=== PATIENT | female | born 1990 | race Caucasian/White ===

== ENCOUNTER 2020-08-14 20:00 | Inpatient (IN) | payer BC ==
[2020-08-14] VITALS (11 sets, daily range): BP systolic 114–156; BP diastolic 67–91; PULSE 63–82; TEMP 98.7
[~2020-08-14] VITALS: Ht 162.6 cm; Wt 70.0 kg
--- NOTE | 2020-08-14 20:10 | NUR ---
G1L0. 39-2. Ambulatory to LDR 5 with spouse. Clean gown on. EFM and TOCO explained and applied. Pt states she thinks her water broke at 1900. Report going to the bathroom and feeling a pop and then there was a softball size puddle on the ground of clear fluid. Pt reports contractions prior water breaking states intensity increased after her water broke. Pt breathing and very uncomfortable with contractions. 2024: SVE per MBert RN 3-4/80-3. bulgy bag noted on exam. Amniotest X3 negative with clear discharge noted to exam glove. Plan of care explained to pt. Assessment completed. 2039: updated on pts status. See phyiscan notification. Pt updated on new plan of care. 2104: IV started and labs obtained via IV site. LR bolus infusing without difficulties. Pt requesting an epidural. CBolivar MERCHANDISE [employer]OW ASSOCIATE notificated. 2150: Jack MERCH[employer]ISE [employer]OW ASSOCIATE at bedside for epidural. Procedure explained. Pt sitting on edge of bed. Difficulty tracing FHR due to maternal position. Pulse ox applied and tracing. 2154: Single shot administered by MERCHANDISE FLOW ASSOCIATE. 2156: Test dosse administered by MERCHANDISE FLOW ASSOCIATE. See anethesia records. 2200: Pt assisted to wedge left position. Plan of care and safety precautions explained to pt and who verbalize their understanding. 2204: FHR deceleration noted down to 90bpms. Pt wedge right with no return to baseline. SVE 8/100/0. Bulgy bag noted. 2206: FHR remains in the 90s with multiple position changes. Oxygen applied via oxymask at 10L. LR bolus infusing. 8: FHR remains in 90s-100s with position changes and oxygen applied. updated on pts status. See phyiscan notification. 2213: FHR deceleration noted down to 80bpm at lowest point. SVE 9. Pt repositioned hands/knees. 2214: requested at hospital for heart tones. See physican notification. 2218: Pt out of hands/knees and repositioned to right lateral. Pt updated on plan of care. Questions answered. 2220: Oxygen removed. 2226: at bedside and reviews FHR strip. Provider to remain at nurses station. [id number]: FHR remains 90s-110s with repositioning pt. 2236: at bedside for evaluation. Reviews FHR strip. SVE C/+2. Pt educated on pushing with contractions. 2241: Pt begins pushing with and reviewing FHR strip. 2248: Straight catherization completed by provider. Pt continues pushing with provider while reviewing FHR strip. 2333: Spontaneous delivery of viable male infant by . NC X2 noted without needing reduced prior to delivery. to mothers chest where dried and stimulated by nursery RN. Care of infant assumed by Chioma BUTLER. 233: Spontaneous delivery of intact placenta by . Pitocin started at 333mu/hr per protocol. Third degree laceration repaired by . Straight catherizarion completed. Fundal message completed. Pads changed, ice pack applied and pt repostioned in bed. Plan of care and safety precautions explained to pt and who verablize their understanding. Questions answered. Call light within reach.
[2020-08-14] MEDS ORDERED: COLACE 100100 MG/CAP PO (20:34)
[2020-08-14] MEDS ORDERED: SYNTHROID0.05 MG/TA PO (20:34)
[2020-08-14] MEDS ORDERED: PRENATAL MVI PO (20:35)
[2020-08-14] MEDS ORDERED: ZYRTEC ALLERGY10 MG PO (20:35)
[2020-08-14 22:00] LABS: BASO % 0.3 % (0.0-2.0); EOS # 0.1 (0.0-0.7); EOS % 0.7 % (0-4.0); GRAN # 8.9 (1.4-6.5); GRAN % 75.6 % (42.2-75.2); HEMATOCRIT 40.3 % (37.0-47.0); HEMOGLOBIN 13.9 g/dl (12.5-16.0); LYMPH # 1.3 (1.2-3.4); MEAN CELL VOLUME 84 fl (80.0-100.0); MEAN CORPUSCULAR HEMOGLOBIN 29 pg (27.0-31.0); MEAN CORPUSCULAR HGB CONC 35 g/dl (33.0-37.0); MONO # 1.4 (0.1-0.6); MONO % 11.4 % (1.7-9.3); PLATELET COUNT 190 K/mm3 (130-400); REDCELL DISTRIBUTION WIDTH-CV 13.9 % (11.5-14.5)
[2020-08-14 22:08] LABS: ALBUMIN 4.3 gm/dL (3.5-5.0); BILIRUBIN,TOTAL 0.7 mg/dL (0.0-1.0); CALCIUM 9.9 mg/dL (8.4-10.2); CREATININE, serum 0.69 (0.52-1.25); POTASSIUM 3.4 mmol/L (3.4-5.0); TOTAL PROTEIN 8.4 gm/dL (6.4-8.2)
[2020-08-15] VITALS (11 sets, daily range): BP systolic 101–131; BP diastolic 58–69; PULSE 63–81; TEMP 97.7–98.5
--- NOTE | 2020-08-15 03:00 | NUR ---
Pt sat up on edge of bed. Epidural catheter removed. Pt denies dizziness or lightheadedness. Pt ambulatory to bathroom one person assist. Pt unable to void. Encouarged fluids. Pericare explained and provided. Pt wheeled and oriented to room.
[2020-08-16] MEDS ORDERED: MOTRIN 800800 MG/TAB PO (04:55)
[2020-08-16 07:45] VITALS: BP 112/68; PULSE 57; TEMP 97.5
--- NOTE | 2020-08-16 07:45 | NUR ---
Ambulates around in the room. Denies any needs or discomfort at this time.
--- NOTE | 2020-08-16 16:45 | NUR ---
Discharge instructions given, verbalizes understanding.
== END 2020-08-16 17:30 | disposition home or self-care (01) | DRG 768 ==
LOC: LDRO 20:00 → LDR 21:00 → OB 08-15 08:22
PROVIDERS: ADMIT Student in an Organized Health Care Education/Training Program
PROC: 10E0XZZ Delivery of Products of Conception, External Approach (ICD-10-PCS; principal; 2020-08-14)
PROC: 0DQR0ZZ Repair Anal Sphincter, Open Approach (ICD-10-PCS; 2020-08-14)
DX: O99.284 Endocrine, nutritional and metabolic diseases complicating childbirth (principal); Z37.0 Single live birth; O70.20 Third degree perineal laceration during delivery, unspecified; Z3A.39 39 weeks gestation of pregnancy; E03.9 Hypothyroidism, unspecified; L30.9 Dermatitis, unspecified; O26.893 Other specified pregnancy related conditions, third trimester; Z67.41 Type O blood, Rh negative; O69.81X0 Labor and delivery complicated by cord around neck, without compression, not applicable or unspecified; Z86.16 Personal history of COVID-19
CPT/HCPCS: J2405; J2590; J2791; J7120

== ENCOUNTER → 2020-08-21 | Outpatient (CLI) | payer BC ==
[~2020-08-21] MED LIST: COLACE 100100 MG/CAP PO; MOTRIN 800800 MG/TAB PO; PRENATAL MVI PO; SYNTHROID0.05 MG/TA PO; ZYRTEC ALLERGY10 MG PO
--- NOTE | 2020-08-21 14:34 | NUR ---
Pt, Edna Mallory, presents for outpatient consult with 7 day old baby boy, Ignatious "Nelson" Shawnee and her spouse, Greg. Bishop contacted this LC because of nipple soreness and concerns about latching. Nelson was born on [birth year] and weighed 7#8.6oz (3420 gms). Discharge weight was 7#3.9oz (3285 gms). At his first doctor appt on 08/19/20 he weighed 7#4oz. Nelson has been supplemented at home with formula and expressed breastmilk. From data available, Nelson has received 7.5oz by bottle in the last 24 oz, of which 2 were formula. Today Nelson weighs 7#6oz (3346 gms). LC assists with improved latching, support under baby and breast. Pt states the latch is more comfortable. After nursing bilaterally Nelson had a weight gain of 0.9oz (26 gms). He is then fed 2oz formula by bottle. Pt is able to pump 1/2oz milk after feeding. Problem list for Nelson: Jaundice, high palate, lip tie Problem list for Pt: low milk supply, sore nipples, post- hypertension POC: 3-step feeding plan: Breast (max 20 min per side), supplement 1-2oz EBM or formula, pump as instructed. Consider diet, fluid, rest and herbal supplements as discussed. F/U: TuesdayAugust 22 [facility], TuesdayAugust 26 @ 1300 with this LC. Questions invited and answered.
== END ==
LOC: LAC 12:51
DX: Z39.1 Encounter for care and examination of lactating mother (principal); Z71.89 Other specified counseling

== ENCOUNTER → 2020-08-26 | Outpatient (CLI) | payer BC ==
--- NOTE | 2020-08-26 13:25 | NUR ---
Pt, Meli Mallory, presents with 12 day old baby boy, Nelson Mallory, for a follow up consult to evaluate milk volume and transfer. They are accompanied by Alisa Mallory. Nelson was born on [birth year] and weighed 7#8.6oz (3419 gms). On 08/21/20 he weighed 7#6oz (3345 gms). They have followed the 3-step feeding plan as described. Nelson has breastfed x8 in the last 24 hours, has received 14oz EBM and/or formula in the last 24 hours. Pt has pumped 8.25oz in the last 24 hours. Today Nelson weighs 7#12.7oz (3536 gms). After the left breast he had a gain of 10 gms. On the right he gained 22gms with breast compression. He is returned to the left breast with compression and has an additional gain of 22gms. He is placed back to the left breast with massage and gained 6 additional gms for a total gain of 38 gms which is a slight improvement from our previous consult where he gained 26 gms. Pt pumps about 5ml after . Ita drinks about 30ml formula by bottle. POC: Continue 3-step feeding plan, pt may consider taking a 24-48 hour pumping plan to evaluate overall production and try stimulation of milk production. F/U: By telephone with this LC, as outpatient to be determined. Questions invited and answered.
== END ==
LOC: LAC 12:51
DX: Z39.1 Encounter for care and examination of lactating mother (principal); Z71.89 Other specified counseling

== ENCOUNTER 2023-12-01 06:23 | Inpatient (IN) | payer BC ==
[2023-12-01] VITALS (26 sets, daily range): BP systolic 111–154; BP diastolic 55–89; PULSE 64–100; TEMP 98–98.6
[~2023-12-01] VITALS: Ht 165.1 cm; Wt 74.5 kg
[~2023-12-01 06:23] MED LIST changes: +CYMBALTA 60MG60 MG PO; +IBU800 M1 PO; +LR & Oxytocin 500 ML IV SCH; +LR 1,000 ML IV SCH; +TRANDATE 100MG100 MG PO
--- NOTE | 2023-12-01 06:45 | NUR ---
PT AMBULATES ONTO THE UNIT FOR SCHEDULED INDUCTION OF LABOR.PT REPORTS ACTIVE MOVEMENTS FROM BABY.PT DENIES LOF/VB.PT REPORTS FEELING IRREGULAR CONTRACTIONS THAT WRAP AROUND HER BACK.POC REVIEWED WITH PT AND SIGNIFICANT OTHER.PT AND SPOUSE VERBALIZE UNDERSTANDING.EFM AND TOCO TRACING CATEGORY 1. CONSENTS REVIEWED AND SIGNED.QUESTIONS ASKED AND ANSWERED.
[2023-12-01] MEDS ORDERED: LAMICTAL 25MG T25 MG PO (06:56)
[2023-12-01 08:15] LABS: BASO % 0.5 % (0.0-2.0); EOS # 0.2 K/mm3 (0.0-0.7); EOS % 3.8 % (0.0-4.0); GRAN # 3.5 K/mm3 (1.4-6.5); GRAN % 59.6 % (42.2-75.2); HEMOGLOBIN 12.1 g/dl (12.5-16.0); LYMPH # 1.3 K/mm3 (1.2-3.4); LYMPH % 22.2 % (20.0-51.0); MEAN CELL VOLUME 89 fl (80.0-100.0); MEAN CORPUSCULAR HEMOGLOBIN 30 pg (27-31); MEAN CORPUSCULAR HGB CONC 34 g/dl (33.0-37.0); MEAN PLATELET VOLUME 12.4 fl (7.4-10.4); MONO # 0.8 K/mm3 (0.1-0.6); MONO % 12.9 % (1.7-9.3); PLATELET COUNT 173 K/mm3 (130-400); RED BLOOD COUNT 3.98 M/mm3 (4.10-5.30); REDCELL DISTRIBUTION WIDTH-CV 14.3 % (11.5-14.5)
[2023-12-01] MEDS ORDERED: ROPivacaine PF 0.2% 200 ML IV ONE (08:15)
[2023-12-01 08:16] LABS: HEMATOCRIT 35.6 % (37.0-47.0)
--- NOTE | 2023-12-01 08:38 | NUR ---
PT SITTING UP ON THE SIDE OF THE BED FOR EPIDURAL PLACEMENT.LR BOLUS INFUSING PER PROTOCOL.PULSE OX AND BP TRACING EVERY 5 MINUTES. DIFFICULTY TRACING EFM AND TOCO DUE TO MATERNAL POSITIONING. 0825 SINGLE SHOT ADMINISTERED PER MAYA WELLER.PT TOLERATED PROCEDURE WELL.
[2023-12-01] MEDS ORDERED: Naloxone 0.4 MG/ML VIAL IV PRN ×2 (09:00→11:30)
[2023-12-01] MEDS ORDERED: diphenhydrAMINE 50 MG/ML 1 ML VIAL IV PRN (09:00)
[2023-12-01] MEDS ORDERED: diphenhydrAMINE 25 MG CAP PO PRN (09:00)
[2023-12-01] MEDS ORDERED: Ondansetron 4 MG/2 ML VIAL IV PRN (09:00)
[2023-12-01] MEDS ORDERED: ePHEDrine 50 MG/10 ML VIAL IV PRN (09:00)
--- NOTE | 2023-12-01 09:35 | NUR ---
DR URBAN AT BEDSIDE.SVE /-856 AROM PERFORMED WITH LARGE GUSH OF CLEAR FLUID.PT TOLERATED PROCEDURE WELL.
[2023-12-01] MEDS ORDERED: Phenylephrine/Mineral Oil/Petrolatum 57 GM TUBE RC PRN (11:30)
[2023-12-01] MEDS ORDERED: Witch Hazel 50% Pads Bulk TUB TP PRN (11:30)
[2023-12-01] MEDS ORDERED: Acetaminophen 500 MG TAB PO SCH (11:30)
[2023-12-01] MEDS ORDERED: Measles/Mumps/Rubella Virus Vaccine Live w Diluent 0.5 ML VIAL SQ SCH (11:30)
[2023-12-01] MEDS ORDERED: Ibuprofen 800 MG TAB PO SCH (11:30)
[2023-12-01] MEDS ORDERED: Magnes Hydrox (MOM) 80 MG/ML 30 ML CUP PO PRN (11:30)
[2023-12-01] MEDS ORDERED: Loratadine 10 MG TAB PO PRN (11:30)
[2023-12-01] MEDS ORDERED: Mag/Al Hydrox/Simeth Susp 30 ML CUP PO PRN (11:30)
--- NOTE | 2023-12-01 11:36 | NUR ---
1030 THIS RN AT BEDSIDE.SVE COMPLETE +1. DR URBAN NOTIFIED FOR IMPENDING DELIVERY.ALL APPROPRIATE STAFF NOTIFIED.ROOM PREPARED FOR DELIVERY 1043 OF VIABLE FEMALE INFANT.STRONG CRY NOTED AT DELIVERY WITH STIMULATION. .CORD CLAMPED AND CUT BY FATHER OF THE BABY. PLACED ON MATERNAL ABDOMEN.INFANT CARES ASSUMED BY MANJIT ROWLEY RN. 1048 SVE OF INTACT PLACENTA.PITOCIN BOLUS INFUSING PER PROTOCOL.2ND DEGREE LACERATION REPAIRED PER DR URBAN.PT TOLERATED PROCEDURE WELL.LOCHIA WITHIN NORMAL LIMITS.FUNDUS FIRM AT THE UMBILICUS.ICE PACK TO PERINEUM.CLEAN BLANKET PLACED ON PT AND INFANT.
--- NOTE | 2023-12-01 14:14 | NUR ---
USING THE [facility] STEDY,PT WHEELED INTO BATHROOM FOR OLIVERIO CARE. PT CHANGED INTO PERSONAL CLOTHING.PT ABLE TO VOID AT THIS TIME. OLIVERIO CARE AND MESH PANTIES AND PAD APPLIED.PT DENIES LIGHTHEADEDNESS AND DIZZINESS. PT MOVED AND ACCLIMATED INTO ROOM 207.EDUCATION REIVEWED WITH PT AND SIGNIFICANT OTHER.PT AND SPOUSE VERBALIZE UNDERSTANDING.
[2023-12-01] MEDS ORDERED: Rho(D) Imm Globulin 1,500 UNITS (300 MCG)/2 ML SYRINGE IV\\IM SCH (14:30)
[2023-12-01] MEDS ORDERED: Sennosides/Docusate 8.6-50 MG TAB PO SCH (17:00)
[2023-12-01] MEDS ORDERED: traZODone 50 MG TAB PO PRN (21:00)
[2023-12-02] VITALS: BP 116/67; PULSE 91; TEMP 97.8
[2023-12-02 05:32] VITALS: BP 134/83; PULSE 90; TEMP 97.9
[2023-12-02 07:30] VITALS: BP 132/88; PULSE 74; TEMP 97.9
--- NOTE | 2023-12-02 09:36 | NUR ---
Initial visit; Parents thanked Central Office Equipment Installer for offering congratulations and God's blessings for the of their daughter. Central Office Equipment Installer thanked family for choosing [facility] and was pleased to hear all has gone well with their stay with us.
--- NOTE | 2023-12-02 13:00 | NUR ---
DISCHARGE TEACHING COMPLETED. EDUCATED ON FOLLOW UP APPOINTMENT AND PRESCRIPTIONS. QUESTIONS INVITED AND ANSWERED.
== END 2023-12-02 13:25 | disposition home or self-care (01) | DRG 807 ==
LOC: LDR 06:23 → OB 06:24
PROVIDERS: ADMIT Student in an Organized Health Care Education/Training Program
PROC: 10E0XZZ Delivery of Products of Conception, External Approach (ICD-10-PCS; principal; 2023-12-01)
PROC: 0KQM0ZZ Repair Perineum Muscle, Open Approach (ICD-10-PCS; 2023-12-01)
PROC: 10907ZC Drainage of Amniotic Fluid, Therapeutic from Products of Conception, Via Natural or Artificial Opening (ICD-10-PCS; 2023-12-01)
PROC: 3E033VJ Introduction of Other Hormone into Peripheral Vein, Percutaneous Approach (ICD-10-PCS; 2023-12-01)
DX: O10.92 Unspecified pre-existing hypertension complicating childbirth (principal); Z37.0 Single live birth; O99.284 Endocrine, nutritional and metabolic diseases complicating childbirth; E03.9 Hypothyroidism, unspecified; O99.02 Anemia complicating childbirth; D64.9 Anemia, unspecified; O26.893 Other specified pregnancy related conditions, third trimester; O70.1 Second degree perineal laceration during delivery; O99.344 Other mental disorders complicating childbirth; F32.A Depression, unspecified; Z79.890 Hormone replacement therapy; Z3A.38 38 weeks gestation of pregnancy; Z23 Encounter for immunization; Z67.41 Type O blood, Rh negative
CPT/HCPCS: J2590; J2791; J2795; J7120